=== PATIENT | female | born 1990 | race Caucasian/White ===

== ENCOUNTER 2017-11-28 15:02 | Emergency (ER) | payer OTHER ==
--- NOTE | 2017-11-28 16:38 | EDPHY ---
H & P Time Seen by Provider: 11/28/17 16:09 HPI/ROS: HPI Left-sided abdominal pain. 27-year-old female by private vehicle. 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 She reports that she was lifting some boxes at work yesterday. She reports that while lifting these boxes she developed left-sided mid abdominal pain which she describes as sharp immediately after lifting some of these boxes. She was sent home from work. She returned to work today but stated to her employer that she was still having some pain in her left mid abdomen. She was sent to the emergency department for evaluation. Last bowel movement was earlier this morning. No bloody or melenic stool. She has not had any nausea or vomiting. No urinary complaints. No fever. ROS: Constitutional: No fever, no chills. No weakness. Respiratory: No cough. No shortness of breath. Cardiac: No chest pain, no palpitations. Gastrointestinal: As above, no vomiting, no diarrhea. Genitourinary: No hematuria. No dysuria or increased frequency with urination. Musculoskeletal: No back pain. No neck pain. No myalgias or arthralgias. Skin: No rashes. Neurological: No headache. No focal weakness or altered sensation. Past medical history: She denies any significant past medical history. Social history: Nonsmoker. No alcohol. Here by herself. Physical Exam: General Appearance: Alert, no distress. This patient is responding to questions appropriately and in full sentences. This patient appears well- hydrated and well-nourished. Eyes: Pupils equal and round no pallor or injection. No lid edema, erythema or injection. Respiratory: There are no retractions, lungs are clear to auscultation with good air movement bilaterally. Gastrointestinal: Obese habitus. Abdomen is soft and without significant tenderness on palpation, no masses or evidence of abdominal wall hernia appreciated, bowel sounds normal. No focal tenderness at McBurney's point. No Kyle sign. Neurological: Motor sensory function is grossly intact. Cranial nerves are normal. Gait is normal. Skin: Warm and dry, no rashes. Musculoskeletal: Neck is supple and nontender. Extremities are symmetrical. All joints range without pain or impingement. Psychiatric: No agitation. No depression. Database: EKG: Imaging: Procedures: Emergency department course: Triage vital signs reviewed. She is moderately hypertensive. Vital signs otherwise normal. Abdominal exam on this patient is unremarkable. I believe her presentation is consistent with an abdominal wall muscle strain. I feel that hernia and particularly incarcerated or strangulated hernia are very unlikely. I discussed imaging with this patient. At this time she feels comfortable going home. We will treat her with ibuprofen. Return to emergency department precautions have been thoroughly reviewed with her. All of her questions were answered. She is to follow up with her primary care physician on Thursday or workman's Comp physician on Thursday for re-evaluation. The patient was discharged home in good condition. Differential Diagnosis: The differential diagnosis on this patient includes but is not limited to abdominal wall muscle strain. Incarcerated/strangulated abdominal hernia, diverticulitis, splenic injury, ureterolithiasis unlikely. This represents a partial list of diagnoses considered. These considerations are based on history , physical exam, past history, reassessment and diagnostic testing. Smoking Status: Current every day smoker Constitutional: Initial Vital Signs Temperature (C) 36.6 C 11/28/17 15:04 Heart Rate 83 11/28/17 15:04 Respiratory Rate 18 11/28/17 15:04 Blood Pressure 146/118 H 11/28/17 15:04 O2 Sat (%) 94 11/28/17 15:04 Allergies/Adverse Reactions: No Known Allergies Allergy (Unverified 11/28/17 15:03) Home Medications: Medication Instructions Recorded NK [No Known Home Meds] 11/28/17 Departure - Departure Disposition: Home, Routine, Self-Care Clinical Impression: Abdominal pain Condition: Good Instructions: Abdominal Pain (ED) Additional Instructions: Read and follow provided instructions. Follow-up with your primary care physician or workman's Comp physician on Thursday for re-evaluation. If you are feeling well tomorrow you can return to work. Avoid any work related activities or other activities that exacerbate you're pain. Ibuprofen dosin mg every 6 hours with meals for the next 3 days only. Take only as needed for pain. Return to the emergency department for worsening abdominal pain, fever, vomiting , pain persisting longer than 3 days or other serious concerns.
[2017-11-28 16:58] VITALS: BP 112/78
== END 2017-11-28 16:58 | disposition home or self-care (01) ==
DX: S39.81XA Other specified injuries of abdomen, initial encounter (principal); X50.0XXA Overexertion from strenuous movement or load, initial encounter; Y93.89 Activity, other specified; Y99.0 Civilian activity done for income or pay